=== PATIENT | female | born 2000 | race Caucasian/White ===

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

== ENCOUNTER 2021-07-12 00:34 | Emergency (ER) | payer OTHER ==
[2021-07-12 00:46] VITALS: BP 136/93; PULSE 68
[2021-07-12] MEDS ORDERED: Lactated Ringers 1,000 ML IV ONE (00:46)
[2021-07-12] MEDS ORDERED: Ondansetron 4 MG/2 ML SDV IVPUSH ONE (00:46)
--- NOTE | 2021-07-12 00:47 | EDM.PDOC ---
ED HPI GENERAL MEDICAL PROBLEM - General Chief Complaint: Drug or Alcohol Abuse Stated Complaint: [facility] Time Seen by Provider: 07/12/21 00:47 - History of Present Illness INITIAL COMMENTS - FREE TEXT/NARRATIVE: 21-year-old female brought in by EMS after being served too much alcohol. History is by the patient's mother. According to the mother the patient called the mom requesting a ride home. The mother was very agreed to for this and went to pick her up but the patient did come out the mother received a few text from patient's friend stating that she was doing tequila shots. And then another one that EMS was picking her up and taking her to the hospital. According to the mom the patient has a medical marijuana card and uses marijuana on a regular basis. The mom is not aware of any recreational drugs. - Related Data Allergies Allergy/AdvReac Type Severity Reaction Status Date / Time nickel Allergy Hives Verified 07/12/21 00:53 Home Meds: Home Meds FLUoxetine HCl [Fluoxetine HCl] 20 mg PO DAILY 07/12/21 [History] desogestreL-ethinyl estradioL [[place] 28 Day Tablet] 1 tab PO DAILY 07/12/21 [History] Past Medical History - Past Health History Medical/Surgical History: Denies Medical/Surgical History HEENT History: Reports: None Cardiovascular History: Reports: None Respiratory History: Reports: None Gastrointestinal History: Reports: None Genitourinary History: Reports: None MATTRESS FINISHER History: Reports: None Musculoskeletal History: Reports: None Neurological History: Reports: None Psychiatric History: Reports: Anxiety, Depression Endocrine/Metabolic History: Reports: None Dermatologic History: Reports: Psoriasis - Past Surgical History HEENT Surgical History: Reports: Myringotomy w Tube(s) (bilateral), Oral Surgery (3 wisdom teeth extracted) Musculoskeletal Surgical History: Reports: Shoulder Surgery (right, arthroscopic) Social & Family History - Family History Family Medical History: No Pertinent Family History - Caffeine Use Caffeine Use: Reports: None - Living Situation & Occupation Living situation: Reports: Single, Other (With a roommate) 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) ED ROS GENERAL - Review of Systems Review Of Systems: See Below Reason Not Obtained: Patient is unable to answer questions at this time ED EXAM, GENERAL - Physical Exam Exam: See Below Exam Limited By: Other (Patient does not want to talk at this time I suspect she is profoundly nauseated she does follow commands however.) General Appearance: Other (She is indeed intoxicated) Ears: Normal External Exam, Normal Canal, Hearing Grossly Normal, Normal TMs Nose: Normal Inspection, Normal Mucosa, No Blood Throat/Mouth: Normal Inspection, Normal Lips, Normal Teeth, Normal Gums, Normal Oropharynx, Normal Voice, No Airway Compromise Head: Atraumatic, Normocephalic Neck: Normal Inspection, Supple, Non-Tender, Full Range of Motion Respiratory/Chest: No Respiratory Distress, Lungs Clear, Normal Breath Sounds Cardiovascular: Regular Rate, Rhythm, No Edema, No Murmur GI/Abdominal: Normal Bowel Sounds, Soft, Non-Tender Extremities: Normal Inspection, No Pedal Edema Neurological: Alert, Other (Intoxicated) Course - Vital Signs Last Recorded V/S: Last Vital Signs Temp 36.6 C 07/12/21 00:44 Pulse 68 07/12/21 00:44 Resp 18 07/12/21 00:44 BP 136/93 H 07/12/21 00:44 Pulse Ox 100 07/12/21 00:44 - Orders/Labs/Meds Orders: Active Orders 24 hr Category Date Time Status Lactated Ringers [Ringers, Lactated] 1,000 ml Med 07/12/21 01:00 Active IV ASDIRECTED Medication Orders Lactated Ringer's (Ringers, Lactated) 1,000 mls @ 150 mls/hr IV ASDIRECTED AG Last Admin: 07/12/21 02:03 Dose: 150 mls/hr Documented by: [facility] Labs: Laboratory Tests 07/12/21 07/12/21 07/12/21 Range/Units 01:11 01:11 01:11 WBC 7.80 (3.98-10.04) K/mm3 RBC 4.47 (3.98-5.22) M/mm3 Hgb 13.9 (11.2-15.7) gm/dl Hct 41.9 (34.1-44.9) % MCV 93.7 D (79.4-94.8) fl MCH 31.1 (25.6-32.2) pg MCHC 33.2 (32.2-35.5) g/dl RDW Std Deviation 42.6 (36.4-46.3) fL Plt Count 316 (182-369) K/mm3 MPV 8.5 L (9.4-12.3) fl Neut % (Auto) 58.3 (34.0-71.1) % Lymph % (Auto) 29.6 (19.3-51.7) % [place] % (Auto) 8.8 (4.7-12.5) % Eos % (Auto) 1.7 (0.7-5.8) Baso % (Auto) 1.2 (0.1-1.2) % Neut # (Auto) 4.55 (1.56-6.13) K/mm3 Lymph # (Auto) 2.31 (1.18-3.74) K/mm3 [place] # (Auto) 0.69 H (0.24-0.36) K/mm3 Eos # (Auto) 0.13 (0.04-0.36) K/mm3 Baso # (Auto) 0.09 H (0.01-0.08) K/mm3 Manual Slide Review Normal smear PT 10.4 (9.7-12.0) SECONDS INR 0.97 Sodium 143 (136-145) mEq/L Potassium 3.2 L (3.5-5.1) mEq/L Chloride 106 (98-107) mEq/L Carbon Dioxide 26 (21-32) mEq/L Anion Gap 14.2 (5-15) BUN 4 L (7-18) mg/dL Creatinine 0.8 (0.55-1.02) mg/dL Est Cr Clr Drug Dosing TNP Estimated GFR (MDRD) > 60 (>60) mL/min BUN/Creatinine Ratio 5.0 L (14-18) Glucose 132 H (70-99) mg/dL Calcium 8.5 (8.5-10.1) mg/dL Total Bilirubin 0.2 (0.2-1.0) mg/dL AST 29 (15-37) U/L ALT 36 (14-59) U/L Alkaline Phosphatase 76 (46-116) U/L Total Protein 7.4 (6.4-8.2) g/dl Albumin 3.8 (3.4-5.0) g/dl Globulin 3.6 gm/dL Albumin/Globulin Ratio 1.1 (1-2) Urine Color (Yellow) Urine Appearance (Clear) Urine pH (5.0-8.0) Ur Specific Orange (1.005-1.030) Urine Protein (Negative) Urine Glucose (UA) (Negative) Urine Ketones (Negative) Urine Occult Blood (Negative) Urine Nitrite (Negative) Urine Bilirubin (Negative) Urine Urobilinogen (0.2-1.0) Ur Leukocyte Esterase (Negative) Urine HCG, Qual (NEGATIVE) Urine Opiates Screen (GXXKHI=989) Ur Buprenorphine Scrn (CUTOFF=10) Ur Oxycodone Screen (NDQ2TA=738) Urine Methadone Screen (RGQNNY=608) Ur Propoxyphene Screen (GYRNFU=900) Ur Barbiturates Screen (GFOVXV=444) Ur Tricyclics Screen (OFNCAP=303) Ur Phencyclidine Scrn (CUTOFF=25) Ur Amphetamine Screen (KFZMIG=046) U Methamphetamines Scrn (LOXPDJ=506) U Benzodiazepines Scrn (SLQCUN=544) U Cocaine Metab Screen (SYYSQM=537) U Marijuana (THC) Screen (CUTOFF=50) Ethyl Alcohol (0.00) gm% 07/12/21 07/12/21 07/12/21 Range/Units 01:11 01:20 01:20 WBC (3.98-10.04) K/mm3 RBC (3.98-5.22) M/mm3 Hgb (11.2-15.7) gm/dl Hct (34.1-44.9) % MCV (79.4-94.8) fl MCH (25.6-32.2) pg MCHC (32.2-35.5) g/dl RDW Std Deviation (36.4-46.3) fL Plt Count (182-369) K/mm3 MPV (9.4-12.3) fl Neut % (Auto) (34.0-71.1) % Lymph % (Auto) (19.3-51.7) % [place] % (Auto) (4.7-12.5) % Eos % (Auto) (0.7-5.8) Baso % (Auto) (0.1-1.2) % Neut # (Auto) (1.56-6.13) K/mm3 Lymph # (Auto) (1.18-3.74) K/mm3 [place] # (Auto) (0.24-0.36) K/mm3 Eos # (Auto) (0.04-0.36) K/mm3 Baso # (Auto) (0.01-0.08) K/mm3 Manual Slide Review PT (9.7-12.0) SECONDS INR Sodium (136-145) mEq/L Potassium (3.5-5.1) mEq/L Chloride (98-107) mEq/L Carbon Dioxide (21-32) mEq/L Anion Gap (5-15) BUN (7-18) mg/dL Creatinine (0.55-1.02) mg/dL Est Cr Clr Drug Dosing Estimated GFR (MDRD) (>60) mL/min BUN/Creatinine Ratio (14-18) Glucose (70-99) mg/dL Calcium (8.5-10.1) mg/dL Total Bilirubin (0.2-1.0) mg/dL AST (15-37) U/L ALT (14-59) U/L Alkaline Phosphatase (46-116) U/L Total Protein (6.4-8.2) g/dl Albumin (3.4-5.0) g/dl Globulin gm/dL Albumin/Globulin Ratio (1-2) Urine Color Yellow (Yellow) Urine Appearance Clear (Clear) Urine pH 5.5 (5.0-8.0) Ur Specific Orange 1.010 (1.005-1.030) Urine Protein Negative (Negative) Urine Glucose (UA) Negative (Negative) Urine Ketones Negative (Negative) Urine Occult Blood Negative (Negative) Urine Nitrite Negative (Negative) Urine Bilirubin Negative (Negative) Urine Urobilinogen 0.2 (0.2-1.0) Ur Leukocyte Esterase Negative (Negative) Urine HCG, Qual Negative (NEGATIVE) Urine Opiates Screen (WYTSWE=226) Ur Buprenorphine Scrn (CUTOFF=10) Ur Oxycodone Screen (NVR3PI=883) Urine Methadone Screen (QORNEV=723) Ur Propoxyphene Screen (VRKSVF=671) Ur Barbiturates Screen (ZCHBJP=401) Ur Tricyclics Screen (AXRVDW=394) Ur Phencyclidine Scrn (CUTOFF=25) Ur Amphetamine Screen (TEVPJZ=454) U Methamphetamines Scrn (UBGFKI=073) U Benzodiazepines Scrn (RWQNFB=981) U Cocaine Metab Screen (UIJBPA=780) U Marijuana (THC) Screen (CUTOFF=50) Ethyl Alcohol 0.22 (0.00) gm% 08/13/21 Range/Units 01:20 WBC (3.98-10.04) K/mm3 RBC (3.98-5.22) M/mm3 Hgb (11.2-15.7) gm/dl Hct (34.1-44.9) % MCV (79.4-94.8) fl MCH (25.6-32.2) pg MCHC (32.2-35.5) g/dl RDW Std Deviation (36.4-46.3) fL Plt Count (182-369) K/mm3 MPV (9.4-12.3) fl Neut % (Auto) (34.0-71.1) % Lymph % (Auto) (19.3-51.7) % [place] % (Auto) (4.7-12.5) % Eos % (Auto) (0.7-5.8) Baso % (Auto) (0.1-1.2) % Neut # (Auto) (1.56-6.13) K/mm3 Lymph # (Auto) (1.18-3.74) K/mm3 [place] # (Auto) (0.24-0.36) K/mm3 Eos # (Auto) (0.04-0.36) K/mm3 Baso # (Auto) (0.01-0.08) K/mm3 Manual Slide Review PT (9.7-12.0) SECONDS INR Sodium (136-145) mEq/L Potassium (3.5-5.1) mEq/L Chloride (98-107) mEq/L Carbon Dioxide (21-32) mEq/L Anion Gap (5-15) BUN (7-18) mg/dL Creatinine (0.55-1.02) mg/dL Est Cr Clr Drug Dosing Estimated GFR (MDRD) (>60) mL/min BUN/Creatinine Ratio (14-18) Glucose (70-99) mg/dL Calcium (8.5-10.1) mg/dL Total Bilirubin (0.2-1.0) mg/dL AST (15-37) U/L ALT (14-59) U/L Alkaline Phosphatase (46-116) U/L Total Protein (6.4-8.2) g/dl Albumin (3.4-5.0) g/dl Globulin gm/dL Albumin/Globulin Ratio (1-2) Urine Color (Yellow) Urine Appearance (Clear) Urine pH (5.0-8.0) Ur Specific Orange (1.005-1.030) Urine Protein (Negative) Urine Glucose (UA) (Negative) Urine Ketones (Negative) Urine Occult Blood (Negative) Urine Nitrite (Negative) Urine Bilirubin (Negative) Urine Urobilinogen (0.2-1.0) Ur Leukocyte Esterase (Negative) Urine HCG, Qual (NEGATIVE) Urine Opiates Screen Negative (LQNSVK=327) Ur Buprenorphine Scrn Negative (CUTOFF=10) Ur Oxycodone Screen Negative (WLI4UN=591) Urine Methadone Screen Negative (CNREZJ=112) Ur Propoxyphene Screen Negative (JMOQID=122) Ur Barbiturates Screen Negative (QGPPOS=120) Ur Tricyclics Screen Negative (AGPRLC=570) Ur Phencyclidine Scrn Negative (CUTOFF=25) Ur Amphetamine Screen Presumptive positive H (EWUHDC=087) U Methamphetamines Scrn Negative (LKVJTF=861) U Benzodiazepines Scrn Negative (ZXTCOO=099) U Cocaine Metab Screen Negative (ACFXUP=841) U Marijuana (THC) Screen Presumptive positive H (CUTOFF=50) Ethyl Alcohol (0.00) gm% Meds: Medications Generic Name Dose Route Start Last Admin Trade Name Freq PRN Reason Stop Dose Admin Lactated Ringer's 1,000 mls @ 150 mls/hr 07/12/21 01:00 07/12/21 02:03 Ringers, Lactated IV 150 mls/hr ASDIRECTED AG Administration Discontinued Medications Generic Name Dose Route Start Last Admin Trade Name Freq PRN Reason Stop Dose Admin Lactated Ringer's 1,000 mls @ 999 mls/hr 07/12/21 00:46 07/12/21 00:58 Ringers, Lactated IV 07/12/21 01:46 999 mls/hr .BOLUS ONE Administration Potassium Chloride 10 meq/ 100 mls @ 100 mls/hr 07/12/21 02:30 07/12/21 03:35 Premix IV 07/12/21 04:29 100 mls/hr Q1H AG Administration Ondansetron HCl 4 mg 07/12/21 00:46 07/12/21 00:58 Ondansetron 4 Mg/2 Ml Sdv IVPUSH 07/12/21 00:47 4 mg ONETIME ONE Administration Potassium Chloride 40 meq 07/12/21 05:04 Potassium Chloride 20 Meq Tab.Er PO 07/12/21 05:05 ONETIME ONE - Re-Assessments/Exams Free Text/Narrative Re-Assessment/Exam: 07/12/21 05:09 Patient is awake alert ambulatory and wants to go home she is received 20 mEq of IV potassium 40 mEq of oral potassium as her potassium was 3.2 she is received nearly 2 L of fluid. Patient's mother is here who is sober and willing to take her home. Departure - Departure Time of Disposition: 05:09 Disposition: Home, Self-Care 01 Clinical Impression: Alcohol intoxication, Hypokalemia - Discharge Information Referrals: Mikayla Madden PA-C [Primary Care Provider] - Forms: ED Department Discharge Additional Instructions: Return to the emergency room with any questions problems or worsening symptoms. Push lots of fluids. Follow-up with your regular healthcare provider as needed Sepsis Event Note (ED) - Focused Exam Vital Signs: Vital Signs Temp Pulse Resp BP Pulse Ox 07/12/21 00:44 36.6 C 68 18 136/93 H 100 - My Orders Last 24 Hours: My Active Orders 07/12/21 01:00 Lactated Ringers [Ringers, Lactated] 1,000 ml IV ASDIRECTED - Assessment/Plan Last 24 Hours: My Active Orders 07/12/21 01:00 Lactated Ringers [Ringers, Lactated] 1,000 ml IV ASDIRECTED
[2021-07-12] MEDS ORDERED: Lactated Ringers 1,000 ML IV SCH (01:00)
[2021-07-12] MEDS: Potassium Chloride 10 MEQ in Premix Bag 1 BAG IV SCH ×2 (02:29→03:35)
[2021-07-12] MEDS ORDERED: Potassium Chloride 20 MEQ Tab.ER PO ONE (05:04)
== END 2021-07-12 05:40 | disposition home or self-care (01) ==
LOC: JD.ED 00:34
DX: F10.129 Alcohol abuse with intoxication, unspecified (principal); E87.6 Hypokalemia; Z91.09 Other allergy status, other than to drugs and biological substances; Y90.5 Blood alcohol level of 100-119 mg/100 ml
CPT/HCPCS: 36415; 80053; 80306; 80307; 81003; 81025; 85025; 85610; 96365; 96366; 96375; 99284; 99284-25; A9270-GY; J2405; J3480; J7120

== ENCOUNTER 2023-10-22 00:50 | Emergency (ER) | payer SELFPAY ==
[2023-10-22 01:22] VITALS: BP 104/70; PULSE 88
[2023-10-22 01:58] LABS: BARBITURATE SCREEN,URINE NEGATIVE (CUTOFF=200); BENZODIAZEPINES SCREEN,URINE NEGATIVE (CUTOFF=150); BUPRENORPHINE SCREEN,URINE NEGATIVE (CUTOFF=10); METHADONE SCREEN, URINE NEGATIVE (CUTOFF=200); METHAMPHETAMINES SCREEN, URINE NEGATIVE (CUTOFF=500); OXYCODONE SCREEN,URINE NEGATIVE (CUT0FF=100); THC SCREEN,URINE 20 NG/ML PRESUMPTIVE POSITIVE (CUTOFF=50)
[2023-10-22 02:04] LABS: AMPHETAMINES SCREEN, URINE NEGATIVE (CUTOFF=500)
== END 2023-10-22 02:39 | disposition home or self-care (01) ==
LOC: JD.ED 00:50
DX: F10.129 Alcohol abuse with intoxication, unspecified (principal); Y90.8 Blood alcohol level of 240 mg/100 ml or more
CPT/HCPCS: 36415; 80306; 80307; 99284; C1758